=== PATIENT | male | born 1960 | race African-American/Black ===

== ENCOUNTER 2019-02-08 11:23 | Emergency (ER) | payer BC, OTHER | END 2019-02-08 12:21 | disposition home or self-care (01) | LOC: JERFT 11:23 ==

== ENCOUNTER 2019-07-12 11:13 | Emergency (ER) | payer BC ==
[2019-07-12 11:23] VITALS: BP 163/93; PULSE 93; TEMP 98.3; BMI 33.6
[2019-07-12] MEDS ORDERED: METHOCARBAMOL 750 MG TABLET PO ONE (11:51)
[2019-07-12] MEDS ORDERED: IBUPROFEN 600 MG TABLET (FP) PO ONE ×2 (11:51→11:54)
[2019-07-12] MEDS ORDERED: METHOCARBAMOL 500 MG TABLET ONE (11:57)
--- NOTE | 2019-07-12 12:08 | PDOC ---
History of Present Illness - General Chief Complaint: Back Pain Stated Complaint: LOWER BACK PAIN Time Seen by Provider: 07/12/19 11:35 History Source: Patient Exam Limitations: No Limitations Past History - Past Medical History Allergies/Adverse Reactions: Allergies Allergy/AdvReac Type Severity Reaction Status Date / Time shellfish derived Allergy Verified 07/12/19 11:19 Home Medications: Ambulatory Orders Aspirin [ASA -] 81 mg PO DAILY 05/04/15 Simvastatin [Zocor -] 40 mg PO HS 11/24/15 metFORMIN HCL [Glucophage -] 750 mg PO BID 11/24/15 Methocarbamol [Robaxin -] 1,500 mg PO QID PRN #24 tablet 07/12/19 Cardiac Disorders: Yes (3 STENTS) COPD: No Diabetes: Yes HTN: Yes Hypercholesterolemia: Yes - Surgical History Cardiac Surgery: Yes (3 STENTS) - Immunization History Immunization Up to Date: Yes - Psycho Social/Smoking Cessation Hx Smoking History: Unknown if ever smoked Have you smoked in the past 12 months: No Hx Alcohol Use: No Drug/Substance Use Hx: No Substance Use Type: None *Physical Exam - Vital Signs Last Vital Signs Temp Pulse Resp BP Pulse Ox 98.3 F 93 H 18 163/93 99 07/12/19 11:21 07/12/19 11:21 07/12/19 11:21 07/12/19 11:21 07/12/19 11:21 - Physical Exam General Appearance: No: Apparent Distress Gastrointestinal/Abdominal: positive: Normal Bowel Sounds, Soft. negative: Tender, Distended, Guarding, Rebound Musculoskeletal: positive: Other (+mild TTP along B/L lumbar paraspinal muscles) . negative: CVA Tenderness, Vertebral Tenderness Integumentary: positive: Normal Color Neurologic: positive: Alert, Normal Mood/Affect, Motor Strength 5/5, Other ( normal gait) ED Treatment Course - Medications Given in the ED: ED Medications Discontinued Medications Generic Name Dose Route Start Last Admin Trade Name Freq PRN Reason Stop Dose Admin Ibuprofen 600 mg 07/12/19 11:51 07/12/19 12:00 Motrin - PO 07/12/19 11:52 600 mg ONCE ONE Administration Methocarbamol 1,500 mg 07/12/19 11:51 07/12/19 12:00 Robaxin - PO 07/12/19 11:52 1,500 mg ONCE ONE Administration Medical Decision Making - Medical Decision Making 59 y/o M with hx of HTN, DM presents with lower back tightness x 3 days. 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 States also does weightlifting so not sure if that also exacerbated his back pain. Back pain is worse with movement of spine. Has been doing Epsom salt baths which has helped decrease his pain. Denies fever, sob, cp, abd pain, n/v, urinary symptoms, numbness/tingling/weakness of extremities, bowel/bladder incontinence, saddle/ groin paresthesia Likely muscle strain Plan: motrin, robaxin 07/12/19 12:05 Discharge - Discharge Information Problems reviewed: Yes Clinical Impression/Diagnosis: Low back strain Qualifiers: Encounter type: initial encounter Qualified Code(s): S39.012A - Strain of muscle, fascia and tendon of lower back, initial encounter Condition: Stable Disposition: HOME - Admission No - Additional Discharge Information Prescriptions: Methocarbamol [Robaxin -] 1,500 mg PO QID PRN #24 tablet PRN Reason: Muscle Spasms Prescription Drug Monitoring Program (I-STOP) results: I-STOP not reviewed - Follow up/Referral Referrals: Pk Garcia MD [Primary Care Provider] - - Patient Discharge Instructions Patient Printed Discharge Instructions: DI for Back Strain or Sprain Additional Instructions: Thank you for choosing [facility]. It was a pleasure taking care of you. You may take Motrin 600 mg every 6 hours by mouth as needed for mild to moderate pain. Take Motrin with food. Take Robaxin as needed for muscle spasms. This medication can also make you drowsy so please be cautious with driving or performing heavy physical work. Continue warm compresses and use epsom salt baths Return to the Emergency Department if your symptoms worsen or persist, you have fever, shortness of breath, chest pain, severe abdominal pain, vomiting, weakness of extremities, changes in vision or walking, unable to control bowel or bladder movements or other concerning symptoms. - Post Discharge Activity
== END 2019-07-12 12:17 | disposition home or self-care (01) ==
LOC: JERFT 11:13
DX: S39.012A Strain of muscle, fascia and tendon of lower back, initial encounter (principal); X58.XXXA Exposure to other specified factors, initial encounter; Y93.89 Activity, other specified; Y92.89 Other specified places as the place of occurrence of the external cause; Y99.0 Civilian activity done for income or pay; E11.9 Type 2 diabetes mellitus without complications; I10 Essential (primary) hypertension; Z91.013 Allergy to seafood; Z95.5 Presence of coronary angioplasty implant and graft; E78.00 Pure hypercholesterolemia, unspecified; Z79.82 Long term (current) use of aspirin
CPT/HCPCS: 99281-25

== ENCOUNTER 2022-05-30 10:38 | Emergency (ER) | payer BC, OTHER ==
[2022-05-30 10:55] VITALS: BP 139/84; PULSE 108; RESP 18; TEMP 98; BMI 32.3
[2022-05-30] MEDS ORDERED: ACETAMINOPHEN 325 MG TABLET (FP) PO ONE (11:29)
[2022-05-30] MEDS ORDERED: ACETAMINOPHEN 500 MG TABLET (FP) ONE (11:35)
== END 2022-05-30 11:46 | disposition home or self-care (01) ==
LOC: JERFT 10:38
DX: J02.9 Acute pharyngitis, unspecified (principal)
CPT/HCPCS: 0241U-QW; 99283-25